=== PATIENT | male | born 1990 | race Caucasian/White ===

== ENCOUNTER 2016-12-09 11:09 | Emergency (ER) | payer OTHER ==
[2016-12-09] MEDS ORDERED: KETOROLAC TROMETHAMINE 60 MG/2 ML VIAL IM ONE ×2 (11:34→11:39)
--- OUTSIDE RECORDS SUMMARY | 2016-12-09 11:43 | XMS REPORT | Continuity of Care Document ---
:1990 Author Organization [facility] ([facility]) Address [address] [place] [address] Phone [phone] Care Team Providers Name Role Phone Unavailable Primary Care Provider Unavailable Source Comments This disclosure is being made pursuant to the Care Everywhere program, applicable federal and state laws, and may not contain all informaitonavailable regarding this patient.[facility] ([facility]) Active Allergies and Adverse Reactions Not on File Current Medications Not on file Active Problems Not on file Social History Tobacco Use Types Packs/Day Years Used Date Never Assessed Plan of Care Health Maintenance Due Date Last Done Comments Hepatitis B Vaccine (1 of 3 - Primary Series) 1990 HPV Vaccine (1 of 3 - Male 3 Dose Series) 11/30/2002 Tdap Vaccine 11/30/2002 Lipid Disorder Screening 11/30/2009 MMR Vaccine 11/30/2009 Td Vaccine 11/30/2009 Varicella Vaccine (1 of 2 - Adult - No Evidence of 11/30/2009 Immunity) Influenza Vaccine: Seasonal (#1) 02/09/2016 Results from Last 3 Months Not on file
--- OUTSIDE RECORDS SUMMARY | 2016-12-09 11:43 | XMS REPORT | Continuity of Care Document ---
:1990 Author Organization [email or web address] [place] [address] Care Team Providers Name Role Phone Unavailable Primary Care Provider Unavailable Source Comments This disclosure is being made pursuant to the [employer] program and maynot contain all information available regarding this [email or web address] Active Allergies and Adverse Reactions Not on File Current Medications Be aware that medications may not be up to date as of this document. Alwaysverify current medications with the patient. Not on file Active Problems Not on file Social History Tobacco Use Types Packs/Day Years Used Date Never Assessed Plan of Care Health Maintenance Due Date Last Done Comments HPV Vaccine ([id number]) (1 of 3 - Male 3 Dose Series) 11/30/2002 Retired-Tetanus Vaccine Adult 11/30/2010 Retired-INFLUENZA VACCINE 03/11/2015 Results from Last 3 Months Not on file
--- NOTE | 2016-12-09 12:02 | ERNOTE ---
Chest Pain/Cardiac HPI Chief Complaint: Chest Pain Time Seen by Provider: 12/09/16 11:13 Immunizations: IMMUNIZATION HX Immunizations Up to Date Yes History of Influenza Vaccine Yes Hx Pneumococcal Vaccination No Allergies/Adverse Reactions: Allergies No Known Allergies Allergy (Verified 12/09/16 11:42) Home Medications: HOME MEDICATIONS lamoTRIgine [Lamictal] 200 mg PO BID 04/17/14 [Last Taken Unknown] Escitalopram Oxalate [Lexapro] 5 mg PO DAILY 08/27/15 [Last Taken Unknown] Topiramate [Topamax] 100 mg PO DAILY 08/27/15 [Last Taken Unknown] Ibuprofen [Motrin] 800 mg PO TID PRN #30 tablet 12/09/16 [Last Taken Unknown] Narrative: here for left sided upper chest wall pain "worse when I take a deep breath", no cough or congestion reported, no fevers. pt has been doing some lifting but not much. Review of Systems - Review of Systems Constitutional: Present: no symptoms reported EYE: Present: no symptoms reported ENT: Present: no symptoms reported Respiratory: Present: See HPI Cardiology: Present: See HPI Gastrointestinal/Abdominal: Present: no symptoms reported Genitourinary: Present: no symptoms reported Musculoskeletal: Present: See HPI Psych: Present: other - pt has anxiety - Patient's Past Medical History Patient History - Medical: Anxiety, Bipolar, Depression Patient History - Cardiac/Respiratory: Bronchitis Patient History - Cancer: No Hx of Cancer Patient History - Surgical Procedures: T & A, Other Patient History - Other: None - Family History Mother Family History - Medical: No pertinent hx Father Family History - Medical: No pertinent hx - Social History Living Situations: significant other Abuse History: No History of abuse Psych History: Hx of Anxiety, Hx of Depression Smoking Status: Current every day smoker Have you smoked in the past 12 months: Yes Alcohol Use: none Drug Use: marijuana - Immunizations Immunizations Up to Date: Yes Hx Pneumococcal Vaccination: No History of Influenza Vaccine: Yes Physical Exam - Physical Exam General Appearance: Present: wd/wn, alert, no apparent distress Ears, Nose, Throat: Present: normal ENT inspection Neck: Present: normal inspection, nontender, supple Respiratory: Present: no respiratory distress, normal breath sounds, no accessory muscle use, lungs clear, other - chest is very tender to palpation in the left costosternal region. pt is acutely tender when I palpate the area. Cardiovascular/Chest: Present: regular rate, rhythm, no murmur, normal peripheral pulses Gastrointestinal/Abdominal: Present: normal bowel sounds Extremity Exam: Present: normal inspection, normal range of motion ED Progress - Results and Orders Patient's Lab Results:: I have reviewed the patient's lab results. - Vital Signs Patient's Vital Signs:: I have reviewed the patient's vital signs. Vital Signs: Vital Signs 12/09/16 11:20 Temperature 36.9 C Pulse Rate 78 Respiratory 18 Rate Blood Pressure 133/95 O2 Sat by Pulse 100 Oximetry - EKG EKG: NSR - X-Ray X-Ray #1 X-Ray: chest - Progress/Reassessment Chief Complaint: Chest Pain Departure - Departure Clinical Impression: Costochondritis, acute Disposition: Home self-care Condition: Good Instructions: Costochondritis, [id number] Referrals: Bernadette Varela FNP [Primary Care Provider] - Prescriptions: Ibuprofen [Motrin] 800 mg PO TID PRN #30 tablet PRN Reason: Pain
[2016-12-09 12:27] VITALS: BP 130/91
== END 2016-12-09 12:20 | disposition home or self-care (01) ==
LOC: ER 11:09
DX: M94.0 Chondrocostal junction syndrome [Tietze] (principal); Z72.0 Tobacco use; F41.8 Other specified anxiety disorders; F31.70 Bipolar disorder, currently in remission, most recent episode unspecified